=== PATIENT | male | born 1955 | race Caucasian/White ===

== ENCOUNTER 2019-08-04 15:34 | Emergency (ER) | payer OTHER, BC ==
--- NOTE | 2019-08-04 16:03 | ER Document Report ---
ED Medical Screen (RME) - General Chief Complaint: Finger Injury Stated Complaint: FINGER INJURY Time Seen by Provider: 08/04/19 16:00 Mode of Arrival: Ambulatory Information source: Patient Notes: 63-year-old male presenting with left fifth digit pain and swelling. Patient reports he cut his finger approximately 1 week ago with a razor blade knife. He reports now there is redness, swelling and erythema. He states he went to see the urgent care where they directed him to the emergency department. The finger is swollen, erythematous and there is obvious pocket of fluid. I have greeted and performed a rapid initial assessment of this patient. A comprehensive ED assessment and evaluation of the patient, analysis of test results and completion of the medical decision making process will be conducted by additional ED providers. I have specifically instructed the patient or family members with the patient to immediately return to any nursing staff should anything change in the patient's condition or with their chief complaint. TRAVEL OUTSIDE OF THE [place] IN LAST 30 DAYS: No - Related Data Allergies/Adverse Reactions: No Known Allergies Allergy (Verified 08/04/19 15:58) Past Medical History - Social History Frequency of alcohol use: None Drug Abuse: None Physical Exam - Vital signs Vitals: Temp Pulse Resp BP Pulse Ox 97.9 F 81 18 176/111 H 95 08/04/19 15:38 08/04/19 15:38 08/04/19 15:38 08/04/19 15:38 08/04/19 15:38 Course - Vital Signs Vital signs: Temp Pulse Resp BP Pulse Ox 97.9 F 81 18 176/111 H 95 08/04/19 15:58 08/04/19 15:38 08/04/19 15:38 08/04/19 15:38 08/04/19 15:38
[2019-08-04] MEDS ORDERED: IBUPROFEN 800 MG TABLET PO ONE (18:04)
[2019-08-04] MEDS ORDERED: BUPIVACAINE HCL 0.5 % INJ/PF 30 ML SDV INJ ONE (18:04)
[2019-08-04] MEDS ORDERED: SULFAMETHOXAZOLE/TRIMETHOPRIM 800-160 MG TABLET PO ONE (18:04)
[2019-08-04] MEDS ORDERED: CEPHALEXIN 500 MG CAPSULE PO ONE (18:04)
[2019-08-04] MEDS ORDERED: DIPH/PERTUSS(ACELL)/TETANUS VAC/PF 0.5 ML SYR (>=10YO) IM ONE (18:04)
--- NOTE | 2019-08-04 18:05 | ER Document Report ---
HPI - HPI Patient complains to provider of: Finger infection Time Seen by Provider: 08/04/19 16:00 Onset: Other - 5 days Onset/Duration: Worse Pain Level: 5 Context: Patient presents complaining of finger infection to the right fifth finger. Patient states that he cut his finger a week ago and that it has gotten infected. Patient states that the area has become swollen and looks as though it has pus under the skin. Patient states that he has put a needle in his finger and attempt to drain it unsuccessfully. Patient states that he cut his finger on steel and has no concern about any retained foreign body. Patient denies any fever. Patient denies any history of diabetes. Associated Symptoms: denies: Fever Exacerbated by: Movement Relieved by: Denies Similar symptoms previously: No Recently seen / treated by doctor: No - ROS ROS below otherwise negative: Yes Systems Reviewed and Negative: Yes All other systems reviewed and negative - CONSTITUTIONAL Constitutional: DENIES: Fever, Chills - NEURO Neurology: DENIES: Weakness - GASTROINTESTINAL Gastrointestinal: DENIES: Nausea - MUSCULOSKELETAL Musculoskeletal: REPORTS: Extremity pain, Swelling - DERM Skin Color: Erythema Notes: Infected laceration Past Medical History - General Information source: Patient - Social History Smoking Status: Current Every Day Smoker Frequency of alcohol use: None Drug Abuse: Marijuana Occupation: [employer] Family History: Reviewed & Not Pertinent Patient has homicidal ideation: No - Medical History Medical History: Negative Surgical Hx: Negative - Immunizations Hx Diphtheria, Pertussis, Tetanus Vaccination: No Vertical Provider Document - CONSTITUTIONAL Agree With Documented VS: Yes Exam Limitations: No Limitations General Appearance: WD/WN, No Apparent Distress - INFECTION CONTROL TRAVEL OUTSIDE OF THE [place] IN LAST 30 DAYS: No - HEENT HEENT: Atraumatic, Normocephalic - NECK Neck: Normal Inspection, Supple - RESPIRATORY Respiratory: Breath Sounds Normal, No Respiratory Distress - CARDIOVASCULAR Cardiovascular: Regular Rate, Regular Rhythm Pulses: Normal: Radial - MUSCULOSKELETAL/EXTREMETIES Musculoskeletal/Extremeties: MAEW, Tender, Edema Notes: right fifth finger tender, swollen with abscess noted to palmar surface over the middle phalanx, surrounding skin erythematous - NEURO Level of Consciousness: Awake, Alert, Appropriate Motor/Sensory: No Motor Deficit - DERM Integumentary: Warm, Dry, Abscess - Abscess to palmar surface of the right fifth finger overlying the middle phalanx with surrounding erythema Course - Vital Signs Vital signs: Temp Pulse Resp BP Pulse Ox 97.9 F 81 18 176/111 H 95 08/04/19 15:58 08/04/19 15:38 08/04/19 15:38 08/04/19 15:38 08/04/19 15:38 Procedures - Incision and Drainage Right Finger 5th digit Type: Simple Anesthetic type: 0.5% Bupivacaine - Digital block Blade size: 11 I&D procedure: Betadine prep applied Incision Method: Incision made by scalpel Amount/type of drainage: Moderate amount of purulent drainage noted from incision Discharge - Discharge Clinical Impression: Encounter for incision and drainage procedure Abscess of finger Qualifiers: Laterality: right Qualified Code(s): L02.511 - Cutaneous abscess of right hand Condition: Stable Disposition: HOME, SELF-CARE Instructions: Abscess ([facility]), Cephalexin ([facility]), Oral Narcotic Medication ([facility]), Post Incision and Drainage, Trimethoprim-Sulfa ([facility]) Additional Instructions: Return immediately for any new or worsening symptoms Followup with your primary care provider, call tomorrow to make a followup appointment Wound culture is pending, we will call if you need any different treatment Change dressing daily and monitor for any signs of infection such as redness, streaks, increased drainage, fever or worsening pain symptoms. Prescriptions: Sulfamethoxazole/Trimethoprim [Bactrim Ds Tablet] 1 each PO BID #20 tablet Mupirocin [Bactroban 2% Ointment 22 gm] 1 applic TP TID #22 gm Cephalexin Monohydrate [Keflex 500 mg Capsule] 500 mg PO Q6H 5 Days #20 capsule Referrals: [facility] [Provider Group] - Follow up as needed
[2019-08-04] MEDS ORDERED: HYDROCODONE/ACETAMINOPHEN 5-325 MG (6 TAB/ER DISP) PO PRN (18:55)
[2019-08-04 19:31] VITALS: BP 152/96
== END 2019-08-04 19:31 | disposition home or self-care (01) ==
LOC: ER 15:34
DX: L02.511 Cutaneous abscess of right hand (principal); F17.200 Nicotine dependence, unspecified, uncomplicated; Z23 Encounter for immunization
CPT/HCPCS: 99283; 90715; 10061; J3490

== ENCOUNTER 2019-08-07 11:28 | Observation (INO) | payer OTHER, BC ==
[2019-08-07] MEDS: OXYCODONE-ACETAMINOPHEN 5-325 MG TABLET PO PRN ×2 (12:18→21:05)
--- NOTE | 2019-08-07 12:49 | PDOC H&P ---
History of Present Illness Admission Date/PCP: 08/07/19 11:28 Patient complains of: right small finger History of Present Illness: BLAS MONTOYA is a 63 year old male who presented to the emergency room 2 days ago with increased redness swelling of his small finger. Patient sustained a laceration at work. Subsequent developed underlying felon of the digit which underwent decompression in the emergency room. Cultures were not obtained according to hospital documentation. Patient states the pain increased over the past 24 hours. Denies fever chills or sweats. Pain pain 6/10. Has been taking Keflex and Bactrim has not seen significant improvement in terms of the swelling along the fingertip. Patient underwent irrigation and debridement under local anesthesia my office cultures were obtained at that time. Social History Smoking Status: Current Every Day Smoker Family History Family History: Reviewed & Not Pertinent Parental Family History Reviewed: No Children Family History Reviewed: No Sibling(s) Family History Reviewed.: No Medication/Allergy Home Medications: Oxycodone HCl/Acetaminophen [Percocet 5-325 mg Tablet] 1 tab PO Q4H PRN #14 tablet 03/20/14 Cephalexin Monohydrate [Keflex 500 mg Capsule] 500 mg PO Q6H 5 Days #20 capsule 08/04/19 Mupirocin [Bactroban 2% Ointment 22 gm] 1 applic TP TID #22 gm 08/04/19 Sulfamethoxazole/Trimethoprim [Bactrim Ds Tablet] 1 each PO BID #20 tablet 08/04/19 Allergies/Adverse Reactions: No Known Allergies Allergy (Verified 08/04/19 15:58) Review of Systems Constitutional: ABSENT: chills, fever(s), headache(s), weight gain, weight loss Eyes: ABSENT: visual disturbances Ears: ABSENT: hearing changes Cardiovascular: ABSENT: chest pain, dyspnea on exertion, edema, orthropnea, palpitations Respiratory: ABSENT: cough, hemoptysis Gastrointestinal: ABSENT: abdominal pain, constipation, diarrhea, hematemesis, hematochezia, nausea, vomiting Genitourinary: ABSENT: dysuria, hematuria Musculoskeletal: PRESENT: as per HPI Integumentary: ABSENT: rash, wounds Neurological: ABSENT: abnormal gait, abnormal speech, confusion, dizziness, focal weakness, syncope Psychiatric: ABSENT: anxiety, depression, homidical ideation, suicidal ideation Endocrine: ABSENT: cold intolerance, heat intolerance, menstrual abnormalities, polydipsia, polyuria Hematologic/Lymphatic: ABSENT: easy bleeding, easy bruising, lymphadenopathy Physical Exam Vital Signs: Temp Pulse Resp BP Pulse Ox 98.0 F 75 17 148/89 H 98 08/07/19 11:29 08/07/19 11:29 08/07/19 11:29 08/07/19 11:29 08/07/19 11:29 Intake & Output 08/06/19 08/07/19 08/08/19 06:59 06:59 06:59 Weight 72.121 kg Musculoskeletal exam: PRESENT: other - Right small finger: Redness and swelling along the distal tip with palpable fluctuance. Exquisite tenderness along the pulp. No tenderness on the flexor sheath. No pain with passive extension. No fusiform swelling. Hypoesthesias on the distal tip. No evidence of foreign body. Intact IP/MP flexion/extension however limited secondary to pain. Assessment & Plan - Diagnosis (1) Abscess of finger Qualifiers: Laterality: right Qualified Code(s): L02.511 - Cutaneous abscess of right hand Is this a current diagnosis for this admission?: Yes Plan: Patient has evidence of felon to the right small finger he underwent irrigation and debridement in the office today decompressing any residual purulence however given the severity of his infection and failure to see improvement after decompression and antibiotics I have recommended admission to the hospital with IV antibiotics. Patient will be started on IV clindamycin and Rocephin. Pe nding on pending examination findings in 24 hours we will consider possible discharge on antibiotics by mouth versus continued IV antibiotics. Patient verbalized understanding for current treatment plan.
[2019-08-07 13:50] LABS: ABSOLUTE BASOPHILS # (AUTO) 0.1 10^3/uL (0.0-0.2); ABSOLUTE EOSINOPHILS # (AUTO) 0.5 10^3/uL (0.0-0.6); ABSOLUTE LYMPHOCYTES (AUTO) 1.5 10^3/uL (0.5-4.7); ABSOLUTE MONOCYTES (AUTO) 0.7 10^3/uL (0.1-1.4); ABSOLUTE NEUT (AUTO) 6.5 10^3/uL (1.7-8.2); BASOPHILS % (AUTO) 1.1 % (0-2); EOSINOPHILS % (AUTO) 5.2 % (0-6); HEMATOCRIT 42.6 % (37.9-51.0); HEMOGLOBIN 14.7 g/dL (13.5-17.0); LYMPHOCYTES % (AUTO) 16.6 % (13-45); MEAN CORPUSCULAR HEMOGLOBIN 30.8 pg (27.0-33.4); MEAN CORPUSCULAR HGB CONC 34.5 g/dL (32.0-36.0); MEAN CORPUSCULAR VOLUME 89 fl (80-97); MONOCYTES % (AUTO) 7.3 % (3-13); PLATELET COUNT 154 10^3/uL (150-450); RED BLOOD COUNT 4.78 10^6/uL (4.35-5.55); RED CELL DISTRIBUTION WIDTH 13.8 % (11.5-14.0); SEGMENTED NEUTROPHILS % (AUTO) 69.8 % (42-78); TOTAL CELLS COUNTED % (AUTO) 100 %; WHITE BLOOD COUNT 9.3 10^3/uL (4.0-10.5)
[2019-08-07] MEDS: CLINDAMYCIN 900 MG/D5W RTU 900 MG/50 ML RTUPB IV SCH ×2 (14:07→21:05)
[2019-08-07 14:30] LABS: ERYTHROCYTE SEDIMENTATION RATE 9 mm/hr (0-20)
[2019-08-07] MEDS ORDERED: CEFTRIAXONE 2 GM/D5W RTU 2 GM/50 ML RTUPB IV SCH (18:00)
[2019-08-08] MEDS: CLINDAMYCIN 900 MG/D5W RTU 900 MG/50 ML RTUPB IV SCH ×2 (05:15→13:21)
[2019-08-08] MEDS: OXYCODONE-ACETAMINOPHEN 5-325 MG TABLET PO PRN ×2 (05:17→11:21)
--- NOTE | 2019-08-08 10:57 | PDOC DISCHARGE SUMMARY ---
Impression - Admit/DC Date/PCP Admission Date/Primary Care Provider: 08/07/19 11:28 Discharge Date: 08/08/19 - Discharge Diagnosis (1) Abscess of finger Is this a current diagnosis for this admission?: Yes - Additional Information Home Medications: Cephalexin Monohydrate [Keflex 500 mg Capsule] 500 mg PO Q6H 5 Days #20 capsule 08/04/19 Mupirocin [Bactroban 2% Ointment 22 gm] 1 applic TP TID #22 gm 08/04/19 Sulfamethoxazole/Trimethoprim [Bactrim Ds Tablet] 1 each PO BID #20 tablet 08/04/19 History of Present Illiness History of Present Illness: BLAS MONTOYA is a 63 year old male who presented to the emergency room 2 days ago with increased redness swelling of his small finger. Patient sustained a laceration at work. Subsequent developed underlying felon of the digit which underwent decompression in the emergency room. Cultures were not obtained according to hospital documentation. Patient states the pain increased over the past 24 hours. Denies fever chills or sweats. Pain pain 6/10. Has been taking Keflex and Bactrim has not seen significant improvement in terms of the swelling along the fingertip. Patient underwent irrigation and debridement under local anesthesia my office cultures were obtained at that time. Hospital Course Hospital Course: Patient received IV clindamycin and Rocephin did note improvement with IV antibiotics over the past 24 hours. States his pain has been improving. Dressing was changed which demonstrated no evidence of purulent drainage. Patient denied fever chills or sweats. At this point given patient is showing improvement decision was made to proceed with discharge on antibiotics by mouth which includes Bactrim 2 tabs p.o. twice daily. Patient will continue chlorhexidine soaks. On 08/08/2019 patient was orthopedically stable for discharge to home. Physical Exam Vital Signs: Temp Pulse Resp BP Pulse Ox 97.5 F 58 L 18 116/78 100 08/08/19 08:00 08/08/19 08:00 08/08/19 08:00 08/08/19 08:00 08/08/19 08:00 Intake & Output 08/07/19 08/08/19 08/09/19 06:59 06:59 06:59 Intake Total 790 Balance 790 Weight 71.9 kg General appearance: PRESENT: no acute distress, well-developed, well-nourished Head exam: PRESENT: atraumatic, normocephalic Eye exam: PRESENT: conjunctiva pink, EOMI, PERRLA. ABSENT: scleral icterus Ear exam: PRESENT: normal external ear exam Mouth exam: PRESENT: moist, tongue midline Neck exam: ABSENT: carotid bruit, JVD, lymphadenopathy, thyromegaly Respiratory exam: PRESENT: clear to auscultation efraín. ABSENT: rales, rhonchi, wheezes Cardiovascular exam: PRESENT: RRR. ABSENT: diastolic murmur, rubs, systolic murmur Pulses: PRESENT: normal dorsalis pedis pul Vascular exam: PRESENT: normal capillary refill GI/Abdominal exam: PRESENT: normal bowel sounds, soft. ABSENT: distended, guarding, mass, organolmegaly, rebound, tenderness Rectal exam: PRESENT: deferred Extremities exam: PRESENT: full ROM. ABSENT: calf tenderness, clubbing, pedal edema Musculoskeletal exam: PRESENT: other - Right small finger: Incision on the volar aspect of the pulp with mild maceration. No expressible purulent drainage. No tenderness on the flexor sheath. Intact DIP flexion/extension. No sensory deficits. Neurological exam: PRESENT: alert, awake, oriented to person, oriented to place, oriented to time, oriented to situation, CN II-XII grossly intact. ABSENT: motor sensory deficit Psychiatric exam: PRESENT: appropriate affect, normal mood. ABSENT: homicidal ideation, suicidal ideation Skin exam: PRESENT: dry, intact, warm. ABSENT: cyanosis, rash Results Laboratory Results: WBC 9.3 10^3/uL (4.0-10.5) 08/07/19 13:35 RBC 4.78 10^6/uL (4.35-5.55) 08/07/19 13:35 Hgb 14.7 g/dL (13.5-17.0) 08/07/19 13:35 Hct 42.6 % (37.9-51.0) 08/07/19 13:35 MCV 89 fl (80-97) 08/07/19 13:35 MCH 30.8 pg (27.0-33.4) 08/07/19 13:35 MCHC 34.5 g/dL (32.0-36.0) 08/07/19 13:35 RDW 13.8 % (11.5-14.0) 08/07/19 13:35 Plt Count 154 10^3/uL (150-450) 08/07/19 13:35 Lymph % (Auto) 16.6 % (13-45) 08/07/19 13:35 [place] % (Auto) 7.3 % (3-13) 08/07/19 13:35 Eos % (Auto) 5.2 % (0-6) 08/07/19 13:35 Baso % (Auto) 1.1 % (0-2) 08/07/19 13:35 Absolute Neuts (auto) 6.5 10^3/uL (1.7-8.2) 08/07/19 13:35 Absolute Lymphs (auto) 1.5 10^3/uL (0.5-4.7) 08/07/19 13:35 Absolute Monos (auto) 0.7 10^3/uL (0.1-1.4) 08/07/19 13:35 Absolute Eos (auto) 0.5 10^3/uL (0.0-0.6) 08/07/19 13:35 Absolute Basos (auto) 0.1 10^3/uL (0.0-0.2) 08/07/19 13:35 Seg Neutrophils % 69.8 % (42-78) 08/07/19 13:35 ESR 9 mm/hr (0-20) 08/07/19 13:35 C-Reactive Protein 10.0 mg/L (<10.0) 08/07/19 13:35 NT-Pro-B Natriuret Pep 104 pg/mL (<125) 08/07/19 13:35 08/07/19 13:35 NT-Pro-B Natriuret Pep 104 Plan Health Concerns: Patient has seen improvement with 24 hours of IV antibiotics after bedside irrigation and debridement. Cultures are growing gram-positive cocci which consistent with likely staph aureus will treat the patient empirically with MRSA coverage including Bactrim 2 twice daily. Patient will receive his dose of Rocephin and last dose of clindamycin prior to discharge. Patient has seen clinical improvement at this point will discharge to home. Patient is to call with any questions or concerns including increased redness, swelling, drainage, temperature greater than 101.5. Patient read above instructions as above instructions orthopedic safe discharge to home on Stroke Is this a Stroke Patient?: No Acute Heart Failure - Is this a Heart Failure Patient?: No
[2019-08-08] MEDS ORDERED: CEFTRIAXONE 2 GM/D5W RTU 2 GM/50 ML RTUPB IV ONE (12:00)
[2019-08-08 12:46] VITALS: BP 116/78
== END 2019-08-08 14:55 | disposition home or self-care (01) ==
LOC: 4S 11:28
PROVIDERS: ADMIT Orthopaedic Surgery; ATTEND Orthopaedic Surgery
DX: L02.511 Cutaneous abscess of right hand (principal); F17.200 Nicotine dependence, unspecified, uncomplicated; Z98.890 Other specified postprocedural states
CPT/HCPCS: 36415; 85025; 85652; 86140; 83880; G0378 ×2; G0379; J3490 ×2; J0696 ×2